=== PATIENT | female | born 1935 | race Hispanic/Latino ===

== ENCOUNTER 2017-06-04 12:47 | Outpatient (CLI) | payer MEDICARE, OTHER ==
--- NOTE | 2017-06-04 15:58 | Mammography Report ---
BILATERAL DIGITAL SCREENING MAMMOGRAM with CAD: 06/04/17 12:47:00 CLINICAL: Routine screening. COMPARISON:06/03/16 FINDINGS: The breasts are heterogeneously dense, which may obscure small masses. No mass, architectural distortion or suspicious calcifications. IMPRESSION: No mammographic evidence of malignancy. BI-RADS CATEGORY: 1 - - Negative RECOMMENDATION: Routine mammographic screening in one year. COMMENT: Patient follow-up letters are generated by our [employer] application.
== END 2017-06-04 12:48 | disposition home or self-care (01) ==
LOC: SPVWC 12:47
PROVIDERS: ATTEND Obstetrics & Gynecology
DX: Z12.31 Encounter for screening mammogram for malignant neoplasm of breast (principal)
CPT/HCPCS: 77067; G0202

== ENCOUNTER 2017-11-07 22:58 | Emergency (ER) | payer MEDICARE, OTHER ==
--- NOTE | 2017-11-07 23:31 | Emergency Department Report ---
ED Altered Mental Status HPI - General Chief Complaint: Altered Mental Status Stated Complaint: AMS Time Seen by Provider: 11/07/17 23:13 Source: family Mode of arrival: Stretcher Limitations: No Limitations - History of Present Illness Initial Comments: Chief complaint altered mental status History of present illness 82-year-old female usually drinks several last wine every night slipped out of the chair and hit her head is being confused and poorly responsive ever since MD Complaint: altered mental status, decreased responsiveness, intoxication -: Gradual, unknown Severity: mild, moderate Context: alcohol abuse Associated Symptoms: other (fall) - Related Data Allergies Allergy/AdvReac Type Severity Reaction Status Date / Time No Known Allergies Allergy Unverified 11/07/17 23:25 ED Review of Systems ROS: Stated complaint: AMS Other details as noted in HPI Comment: Unobtainable due to pts medical conditions Constitutional: denies: diaphoresis, fever, weakness Respiratory: denies: shortness of breath, SOB with exertion, SOB at rest, wheezing Cardiovascular: denies: chest pain, edema, syncope ED Past Medical Hx - Past Medical History Previous Medical History?: Yes Hx Hypertension: Yes - Surgical History Past Surgical History?: No - Social History Smoking Status: Former Smoker Substance Use Type: Alcohol ED Physical Exam - General Limitations: No Limitations, Altered Mental Status General appearance: obtunded, other (arouses to deep stimulation and sternal rub occasionally follows commands but is confused and appears intoxicated) - Eye Eye exam: Present: PERRL - ENT ENT exam: Present: other ( good gag reflex , no stridor no drooling) - Neck Neck exam: Absent: meningismus - Respiratory Respiratory exam: Present: normal lung sounds bilaterally. Absent: respiratory distress, wheezes, rales, rhonchi, stridor - Cardiovascular Cardiovascular Exam: Present: regular rate, normal rhythm - GI/Abdominal GI/Abdominal exam: Present: soft. Absent: distended, tenderness, guarding, rebound, mass, pulsatile mass - Neurological Exam Neurological exam: Present: other (localizes pain). Absent: motor sensory deficit - Skin Skin exam: Present: warm. Absent: rash ED Course Vital Signs 11/07/17 11/07/17 23:14 23:30 Temperature 97.6 F Pulse Rate 67 Respiratory 16 16 Rate Blood Pressure 157/74 O2 Sat by Pulse 95 96 Oximetry - Reevaluation(s) Reevaluation #1: 11/08/17 01:39 Patient is given IV fluids she did have a CT scan of the head after lab studies were obtained 11/08/17 01:39 - Lab Data Result diagrams: 11/07/17 23:38 11/07/17 23:38 Lab Results 11/07/17 11/07/17 11/07/17 Range/Units 23:38 23:38 23:38 WBC 6.7 (4.5-11.0) K/mm3 RBC 4.17 (3.65-5.03) M/mm3 Hgb 13.3 (10.1-14.3) gm/dl Hct 40.5 (30.3-42.9) % MCV 97 (79-97) fl MCH 32 (28-32) pg MCHC 33 (30-34) % RDW 14.3 (13.2-15.2) % Plt Count 194 (140-440) K/mm3 Lymph % (Auto) 31.5 (13.4-35.0) % Graves % (Auto) 6.9 (0.0-7.3) % Eos % (Auto) 3.6 (0.0-4.3) % Baso % (Auto) 1.1 (0.0-1.8) % Lymph # 2.1 (1.2-5.4) K/mm3 Graves # 0.5 (0.0-0.8) K/mm3 Eos # 0.2 (0.0-0.4) K/mm3 Baso # 0.1 (0.0-0.1) K/mm3 Seg Neutrophils % 56.9 (40.0-70.0) % Seg Neutrophils # 3.8 (1.8-7.7) K/mm3 Sodium 143 (137-145) mmol/L Potassium 3.8 (3.6-5.0) mmol/L Chloride 105.7 (98-107) mmol/L Carbon Dioxide 23 (22-30) mmol/L Anion Gap 18 mmol/L BUN 16 (7-17) mg/dL Creatinine 0.9 (0.7-1.2) mg/dL Estimated GFR > 60 ml/min BUN/Creatinine Ratio 18 % Glucose 99 (65-100) mg/dL Calcium 8.1 L (8.4-10.2) mg/dL Total Bilirubin 0.20 (0.1-1.2) mg/dL AST 29 (5-40) units/L ALT 23 (7-56) units/L Alkaline Phosphatase 47 (35-129) units/L Total Protein 5.4 L (6.3-8.2) g/dL Albumin 3.7 L (3.9-5) g/dL Albumin/Globulin Ratio 2.2 % Urine Color (Yellow) Urine Turbidity (Clear) Urine pH (5.0-7.0) Ur Specific Deridder (1.003-1.030) Urine Protein (Negative) mg/dL Urine Glucose (UA) (Negative) mg/dL Urine Ketones (Negative) mg/dL Urine Blood (Negative) Urine Nitrite (Negative) Urine Bilirubin (Negative) Urine Urobilinogen (<2.0) mg/dL Ur Leukocyte Esterase (Negative) Urine WBC (Auto) (0.0-6.0) /HPF Urine RBC (Auto) (0.0-6.0) /HPF U Epithel Cells (Auto) (0-13.0) /HPF Urine Mucus /HPF Urine Opiates Screen Urine Methadone Screen Ur Barbiturates Screen Ur Phencyclidine Scrn Ur Amphetamines Screen U Benzodiazepines Scrn Urine Cocaine Screen U Marijuana (THC) Screen Drugs of Abuse Note Plasma/Serum Alcohol 0.34 H (0-0.07) gm% 11/08/17 11/08/17 Range/Units 00:13 00:13 WBC (4.5-11.0) K/mm3 RBC (3.65-5.03) M/mm3 Hgb (10.1-14.3) gm/dl Hct (30.3-42.9) % MCV (79-97) fl MCH (28-32) pg MCHC (30-34) % RDW (13.2-15.2) % Plt Count (140-440) K/mm3 Lymph % (Auto) (13.4-35.0) % Graves % (Auto) (0.0-7.3) % Eos % (Auto) (0.0-4.3) % Baso % (Auto) (0.0-1.8) % Lymph # (1.2-5.4) K/mm3 Graves # (0.0-0.8) K/mm3 Eos # (0.0-0.4) K/mm3 Baso # (0.0-0.1) K/mm3 Seg Neutrophils % (40.0-70.0) % Seg Neutrophils # (1.8-7.7) K/mm3 Sodium (137-145) mmol/L Potassium (3.6-5.0) mmol/L Chloride (98-107) mmol/L Carbon Dioxide (22-30) mmol/L Anion Gap mmol/L BUN (7-17) mg/dL Creatinine (0.7-1.2) mg/dL Estimated GFR ml/min BUN/Creatinine Ratio % Glucose (65-100) mg/dL Calcium (8.4-10.2) mg/dL Total Bilirubin (0.1-1.2) mg/dL AST (5-40) units/L ALT (7-56) units/L Alkaline Phosphatase (35-129) units/L Total Protein (6.3-8.2) g/dL Albumin (3.9-5) g/dL Albumin/Globulin Ratio % Urine Color Yellow (Yellow) Urine Turbidity Clear (Clear) Urine pH 5.0 (5.0-7.0) Ur Specific Deridder 1.009 (1.003-1.030) Urine Protein <15 mg/dl (Negative) mg/dL Urine Glucose (UA) Neg (Negative) mg/dL Urine Ketones Neg (Negative) mg/dL Urine Blood Neg (Negative) Urine Nitrite Neg (Negative) Urine Bilirubin Neg (Negative) Urine Urobilinogen < 2.0 (<2.0) mg/dL Ur Leukocyte Esterase Neg (Negative) Urine WBC (Auto) < 1.0 (0.0-6.0) /HPF Urine RBC (Auto) < 1.0 (0.0-6.0) /HPF U Epithel Cells (Auto) < 1.0 (0-13.0) /HPF Urine Mucus Few /HPF Urine Opiates Screen Presumptive negative Urine Methadone Screen Presumptive negative Ur Barbiturates Screen Presumptive negative Ur Phencyclidine Scrn Presumptive negative Ur Amphetamines Screen Presumptive negative U Benzodiazepines Scrn Presumptive negative Urine Cocaine Screen Presumptive negative U Marijuana (THC) Screen Presumptive negative Drugs of Abuse Note Disclamer Plasma/Serum Alcohol (0-0.07) gm% - EKG Data EKG shows normal: sinus rhythm Interpretation: no acute changes - Radiology Data Radiology results: report reviewed - Medical Decision Making Patient essentially presented with a change in her baseline mental status family states she did slip out of a chair tonight however CT of the head was negative she is still poorly responsive but does have an elevated alcohol greater than 300 symptoms are likely related to intoxication urinalysis was negative UDS was negative patient no response with Narcan the remainder of the workup was essentially unremarkable she will be observed in the ED until clinical sobriety given the elevated alcohol symptoms do seem to be related to alcohol intoxication she is receiving a banana bag and magnesium in the ED prior to discharge - NEXUS Criteria Focal neurological deficit present: No Midline spinal tenderness present: No Intoxication present: Yes NEXUS results: C-Spine cannot be cleared clinically by these results. Imaging is required. Critical care attestation.: If time is entered above; I have spent that time in minutes in the direct care of this critically ill patient, excluding procedure time. ED Disposition Clinical Impression: Alcohol intoxication Disposition: DC-01 TO HOME OR SELFCARE Is pt being admited?: No Does the pt Need Aspirin: No Condition: Stable Instructions: Alcohol Intoxication (ED) Additional Instructions: Return if new alarming symptoms Time of Disposition: 01:44
[2017-11-07 23:55] LABS: Basophils % (Auto) 1.1 % (0.0-1.8); Eosinophils % (Auto) 3.6 % (0.0-4.3); Hematocrit 40.5 % (30.3-42.9); Hemoglobin 13.3 gm/dl (10.1-14.3); Mean Corpuscular HGB Conc 33 % (30-34); Mean Corpuscular Hemoglobin 32 pg (28-32); Mean Corpuscular Volume 97 fl (79-97); Platelet Count 194 K/mm3 (140-440); Red Blood Count 4.17 M/mm3 (3.65-5.03); Red Cell Distribution Width 14.3 % (13.2-15.2); White Blood Count 6.7 K/mm3 (4.5-11.0)
[2017-11-08 00:10] LABS: Alanine Aminotransferase 23 units/L (7-56); Albumin 3.7 g/dL (3.9-5); Albumin/Globulin Ratio 2.2 %; Alkaline Phosphatase 47 units/L (35-129); Anion Gap 18 mmol/L; BUN/Creatinine Ratio 18; Blood Urea Nitrogen 16 mg/dL (7-17); Calcium 8.1 mg/dL (8.4-10.2); Carbon Dioxide 23 mmol/L (22-30); Chloride 105.7 mmol/L (98-107); Glucose 99 mg/dL (65-100); Potassium 3.8 mmol/L (3.6-5.0); Sodium 143 mmol/L (137-145); Total Protein 5.4 g/dL (6.3-8.2)
[2017-11-08] MEDS ORDERED: NARCAN 0.4 MG/1 ML IV ONE (00:11)
--- NOTE | 2017-11-08 00:16 | Cat Scan Report ---
FINAL REPORT EXAM: CT HEAD/BRAIN W/O CONTRAST HISTORY: Altered mental status. TECHNIQUE: Unenhanced axial CT images of the brain were obtained. No prior studies are available for comparison. FINDINGS: There is moderate diffuse generalized volume loss, appropriate for patient's age. There are moderate patchy areas of abnormal low attenuation in the periventricular and subcortical white matter diffusely, nonspecific but most commonly due to chronic small vessel ischemic disease. The ybarra-white differentiation is maintained. There is no extra-axial fluid collection, mass, mass effect, midline shift, hydrocephalus, or acute intracranial hemorrhage. The visualized paranasal sinuses and mastoid air cells are clear. There is no skull fracture or other osseous abnormality. There are changes of prior cataract surgery in the left globe. There are curvilinear and nodular foci of soft tissue in both external auditory canals, nonspecific but most likely cerumen. IMPRESSION: No acute intracranial abnormality. Moderate generalized volume loss and moderate probable chronic small vessel ischemic disease.
[2017-11-08 00:19] LABS: Urine Drugs of Abuse Note Disclamer
[2017-11-08] MEDS ORDERED: INFUVITE IV ONE (00:33)
[2017-11-08] MEDS ORDERED: [UNRECOGNIZED DRUG - OTHER] IV ONE (00:33)
[2017-11-08] MEDS ORDERED: MAGNESIUM SULFATE IV ONE ×2 (00:33→00:34)
[2017-11-08] MEDS ORDERED: FOLVITE IV ONE (00:33)
[2017-11-08] MEDS ORDERED: VITAMIN B1 IV ONE (00:33)
[2017-11-08 00:36] LABS: Bilirubin,Urine NEG (Negative); Blood,Urine NEG (Negative); Ketones,Urine NEG (Negative); Leukocyte Esterase,Urine NEG (Negative); Mucus,Urine FEW /HPF; Nitrite,Urine NEG (Negative); Protein,Urine <15 mg/dL mg/dL (Negative); RBC,Urine < 1.0 /HPF (0.0-6.0); Urobilinogen,Urine < 2.0 mg/dL (<2.0); WBC,Urine < 1.0 /HPF (0.0-6.0)
--- NOTE | 2017-11-08 07:43 | Cat Scan Report ---
FINAL REPORT EXAM: CT CERVICAL SPINE W/O CONTRAST. HISTORY: Status post fall. ETOH. TECHNIQUE: Unenhanced axial CT images of the cervical spine were obtained. Coronal and sagittal reformatted images were also obtained. No prior studies are available for comparison. FINDINGS: The cervical vertebral bodies demonstrate normal height and morphology. There is straightening of the cervical lordosis, which may be due to underlying degenerative changes, patient positioning, and/or muscle spasm. There is no fracture. There is 1-2 mm anterolisthesis of C2 on C3 and C7 on T1, and 3 mm anterolisthesis of C3 on C4. There is severe loss of disc height at C4-5 through C6-7, and [id number] of disc height seen throughout the remainder of the cervical spine. There is moderate anterior spurring seen throughout the spine. The prevertebral soft tissues are unremarkable. There are diffuse disc osteophyte complexes at C3-4 through C6-7. This results in mild central canal narrowing at C5-6. There is multilevel uncovertebral and facet hypertrophy. There is resultant moderate to severe left neural foraminal narrowing at C2-3, severe left neural foraminal narrowing at C3-4, severe right neural foraminal narrowing at C4-5, severe right neural foraminal narrowing at C5-6, and moderate left neural foraminal narrowing at C6-7. There are bilateral carotid vascular calcifications. There are mild emphysematous changes in the visualized lung apices. Moderate biapical pleural scarring is noted. IMPRESSION: 1. Nonspecific straightening of the cervical lordosis. Grade I anterolisthesis of C2 on C3, C3 on C4, and C7 on T1. No fracture identified. 2. Multilevel disc osteophyte complexes and uncovertebral/facet arthropathy. Mild central canal narrowing at C5-6 and multilevel bilateral moderate-severe neural foraminal narrowing, as described.
[2017-11-08 09:23] VITALS: BP 160/64
--- NOTE | 2017-11-08 11:08 | Event Note ---
Date: 11/08/17 Patient is able to walk. Patient is alert and oriented to name. She knows that she is at the hospital. She is still intoxicated. Her daughter is now in the ER, she is taking the patient home, patient's daughter reports that she feels very comfortable to take the patient home. Patient started will have the patient follow-up with her primary care doctor. Return precautions were reviewed.
== END 2017-11-08 11:10 | disposition home or self-care (01) ==
LOC: ED 22:58
DX: F10.129 Alcohol abuse with intoxication, unspecified (principal); I10 Essential (primary) hypertension
CPT/HCPCS: 36415; 51702; 70450; 72125; 80053; 80307; 81001; 85025; 93005; 93010; 96365; 96366; 96375; 99284; G0480; J2310; J3411; J3475; J7030; 80320

== ENCOUNTER 2018-06-08 09:26 | Outpatient (CLI) | payer MEDICARE, OTHER ==
--- NOTE | 2018-06-08 14:57 | Mammography Report ---
BILATERAL DIGITAL SCREENING MAMMOGRAM with CAD: 06/08/18 09:26:00 CLINICAL: Routine screening.A significant weight loss since her last mammogram. COMPARISON:None. FINDINGS: The breasts are heterogeneously dense, which may obscure small masses and the rest are smaller than on previous exams. A left asymmetry requires additional imaging.No architectural distortion or suspicious calcifications.The right breast is negative. IMPRESSION: Left asymmetry requiring further workup. BI-RADS CATEGORY: 0 -- Additional Imaging Evaluation Required RECOMMENDATION: Recall for left lateralmedial , rolled CC and spot compression CC views and left breast ultrasound if needed. ACR BI-RADS MAMMOGRAPHIC CODES: 0 = Needs additional imaging evaluation; 1 = Negative; 2 = Benign; 3 = Probably benign; 4 = Suspicious; 5 = Malignant; 6 = Known biopsy-proven malignancy COMMENT: 1. Dense breast tissue, i.e., adenosis, fibrocystic changes, etc., may obscure an underlying neoplasm. 2. Approximately 10% of cancers are not detected with mammography. 3. A negative mammography report should not delay biopsy if a clinically suspicious mass is present. COMMENT: Patient follow-up letters are generated via our [employer] application.
== END 2018-06-08 09:27 | disposition home or self-care (01) ==
LOC: SPVWC 09:26
PROVIDERS: ATTEND Obstetrics & Gynecology
DX: Z12.31 Encounter for screening mammogram for malignant neoplasm of breast (principal); I10 Essential (primary) hypertension; Z87.891 Personal history of nicotine dependence
CPT/HCPCS: 77067

== ENCOUNTER 2018-06-22 08:37 | Outpatient (CLI) | payer MEDICARE, OTHER ==
--- NOTE | 2018-06-22 11:39 | Mammography Report ---
Left mammogram and left breast ultrasound: Call back for left asymmetry. The additional compression imaging again demonstrates an area of increased density with poor margination in the central left breast as seen only in the CC projection. The lateral views do not demonstrate a comparable finding. When compared however to her prior exams dating back to 2016 this asymmetry appears essentially unchanged and less impressive than seen on the recent screening exam. Whole breast ultrasound on the left fails to identify any focal mass. Some scattered dilated ducts are noted. Impression: Stable left mammogram. No currently suspicious findings. Negative breast ultrasound. Recommendation: Annual mammogram followup. BI-RADS CATEGORY: 2 = Benign ACR BI-RADS MAMMOGRAPHIC CODES: 0 = Needs additional imaging evaluation; 1 = Negative; 2 = Benign; 3 = Probably benign; 4 = Suspicious; 5 = Malignant; 6 = Known biopsy-proven malignancy COMMENT: 1. Dense breast tissue, i.e., adenosis, fibrocystic changes, etc., may obscure an underlying neoplasm. 2. Approximately 10% of cancers are not detected with mammography. 3. A negative mammography report should not delay biopsy if a clinically suspicious mass is present.
== END 2018-06-22 08:38 | disposition home or self-care (01) ==
LOC: SPVWC 08:37
PROVIDERS: ATTEND Obstetrics & Gynecology
DX: R92.8 Other abnormal and inconclusive findings on diagnostic imaging of breast (principal); I10 Essential (primary) hypertension

== ENCOUNTER 2019-06-16 14:26 | Outpatient (CLI) | payer MEDICARE, OTHER ==
--- NOTE | 2019-06-16 16:11 | Mammography Report ---
BILATERAL DIGITAL SCREENING MAMMOGRAM WITH CAD INDICATION: Routine screening mammography. TECHNIQUE: Digital bilateral 2D mammography was obtained in the craniocaudal and mediolateral obliq ue projections. This examination was interpreted with the benefit of Computer-Aided Detection analysi s. COMPARISON: 06/08/2018 FINDINGS: Breast Density: The breasts are heterogeneously dense, which may obscure small masses. No mass, architectural distortion or suspicious calcifications. IMPRESSION:No mammographic evidence of malignancy. BI-RADS Category 1: Negative. No mammographic evidence of malignancy. Recommend routine screening m ammography in one year. A "normal" or negative report should not discourage follow up or biopsy of a clinically significant f inding. A written summary of these findings will be mailed to the patient. The patient will be entered into a mammography reporting system which will generate a reminder letter for the patient's next appointmen t at the appropriate interval. The [employer] recommends yearly mammograms starting at age 40 and continuing as l seferino as a woman is in good health. Breast MRI is recommended for women with an approximate 20-25% or greater lifetime risk of breast cancer, including women with a strong family history of breast or ova nadia cancer or who have been treated for Hodgkin's disease. Signer Name: Yoel Mays MD Signed: 06/16/2019 4:06 PM Workstation Name: [id number]
== END 2019-06-16 14:27 | disposition home or self-care (01) ==
LOC: SPVWC 14:26
PROVIDERS: ATTEND Obstetrics & Gynecology
DX: Z12.31 Encounter for screening mammogram for malignant neoplasm of breast (principal); I10 Essential (primary) hypertension
CPT/HCPCS: 77067

== ENCOUNTER 2020-06-28 09:24 | Outpatient (CLI) | payer MEDICARE, OTHER ==
--- NOTE | 2020-06-28 10:39 | Mammography Report ---
DIGITAL SCREENING MAMMOGRAM WITH CAD, 06/28/2020 INDICATION: Routine screening mammography. TECHNIQUE: Digital bilateral 2D mammography was obtained in the craniocaudal and mediolateral obliq ue projections. This examination was interpreted with the benefit of Computer-Aided Detection analysi s. COMPARISON: 06/16/2019. FINDINGS: Breast Density: The breasts are heterogeneously dense, which may obscure small masses. There is no evidence of dominant mass, suspicious calcifications or architectural distortion in eithe r breast. IMPRESSION: Follow up recommendation: Routine yearly BI-RADS Category 1: Negative. A "normal" or negative report should not discourage follow up or biopsy of a clinically significant f inding. A written summary of these findings will be mailed to the patient. The patient will be entered into a mammography reporting system which will generate a reminder letter for the patient's next appointmen t at the appropriate interval. The [employer] recommends yearly mammograms starting at age 40 and continuing as l seferino as a woman is in good health. Breast MRI is recommended for women with an approximate 20-25% or greater lifetime risk of breast cancer, including women with a strong family history of breast or ova nadia cancer or who have been treated for Hodgkin's disease. Signer Name: Miguel Ángel Shearer MD Signed: 06/28/2020 10:34 AM Workstation Name: [email or web address]
== END 2020-06-28 09:25 | disposition home or self-care (01) ==
LOC: SPVWC 09:24
PROVIDERS: ATTEND Obstetrics & Gynecology
DX: Z12.31 Encounter for screening mammogram for malignant neoplasm of breast (principal)
CPT/HCPCS: 77067

== ENCOUNTER 2020-09-18 11:36 | Outpatient (CLI) | payer MEDICARE, OTHER ==
[2020-09-18 12:19] LABS: Hematocrit 48.3 % (30.3-42.9); Hemoglobin 16.8 gm/dl (10.1-14.3); Mean Corpuscular HGB Conc 35 % (30-34); Mean Corpuscular Volume 94 fl (79-97); Platelet Count 228 K/mm3 (140-440); Red Blood Count 5.14 M/mm3 (3.65-5.03); Red Cell Distribution Width 14.2 % (13.2-15.2)
[2020-09-18 12:38] LABS: Albumin 4.8 g/dL (3.9-5); Calcium 9.9 mg/dL (8.4-10.2)
[2020-09-18 12:52] LABS: Erythrocyte Sedimentation Rate 1 mm/Hr (0-20)
[2020-09-21 23:01] LABS: ANA Screen, IFA Positive (Negative)
[2020-09-23 14:01] LABS: Vitamin D, 25-OH, D2 <4 ng/mL
== END 2020-09-18 11:37 | disposition home or self-care (01) ==
LOC: LAB 11:36
PROVIDERS: ATTEND Specialist
DX: G62.9 Polyneuropathy, unspecified (principal); G65.1 Sequelae of other inflammatory polyneuropathy; I10 Essential (primary) hypertension; Z79.899 Other long term (current) drug therapy
CPT/HCPCS: 36415; 80053; 82306; 82607; 82747; 83036; 83921; 84443; 85027; 85652; 86038; 86334

== ENCOUNTER 2021-11-13 09:41 | Outpatient (CLI) | payer MEDICARE, OTHER ==
--- NOTE | 2021-11-13 14:51 | Mammography Report ---
DIGITAL SCREENING MAMMOGRAM WITH CAD, 11/13/2021 CLINICAL INFORMATION / INDICATION: Routine screening TECHNIQUE: Digital bilateral 2D mammography was obtained in the craniocaudal and mediolateral obliqu e projections. This examination was interpreted with the benefit of Computer-Aided Detection analysis . COMPARISON: 06/28/2020 and prior FINDINGS: Breast Density: The breasts are heterogeneously dense, which may obscure small masses. No dominant mass, suspicious calcifications, or architectural distortion in either breast. Left calcifications are stable. IMPRESSION: No mammographic evidence of malignancy. Follow up recommendation: Routine yearly BI-RADS Category 2: BENIGN. A "normal" or negative report should not discourage follow up or biopsy of a clinically significant f inding. A written summary of these findings will be mailed to the patient. The patient will be entered into a mammography reporting system which will generate a reminder letter for the patient's next appointmen t at the appropriate interval. The [employer] recommends yearly mammograms starting at age 40 and continuing as l seferino as a woman is in good health. Breast MRI is recommended for women with an approximate 20-25% or greater lifetime risk of breast cancer, including women with a strong family history of breast or ova nadia cancer or who have been treated for Hodgkin's disease. Signer Name: Eric Sharma MD Signed: 11/13/2021 2:47 PM Workstation Name: [email or web address][email or web address]
== END 2021-11-13 09:42 | disposition home or self-care (01) ==
LOC: SPVWC 09:41
PROVIDERS: ATTEND Obstetrics & Gynecology
DX: Z12.31 Encounter for screening mammogram for malignant neoplasm of breast (principal)
CPT/HCPCS: 77067